=== PATIENT | male | born 1970 | race Caucasian/White ===

== ENCOUNTER 2022-07-13 10:23 | Emergency (ER) | payer BC ==
[~2022-07-13] VITALS: Ht 182.9 cm; Wt 122.5 kg
[2022-07-13] VITALS (13 sets, daily range): BP systolic 122–146; BP diastolic 67–91
== END 2022-07-13 13:49 | disposition home or self-care (01) | DRG 563 ==
LOC: ED 10:23
DX: S93.402A Sprain of unspecified ligament of left ankle, initial encounter (principal); I10 Essential (primary) hypertension; E11.9 Type 2 diabetes mellitus without complications; X50.0XXA Overexertion from strenuous movement or load, initial encounter; Y93.89 Activity, other specified